=== PATIENT | female | born 1960 | race Caucasian/White ===

== ENCOUNTER 2016-06-09 11:31 | Emergency (ER) | payer BC, OTHER ==
[2016-06-09 13:55] VITALS: BP 143/78
--- NOTE | 2016-06-09 15:26 | RAD ---
INDICATION: Left wrist injury. TECHNIQUE: 3 views of the left wrist were obtained. FINDINGS: The bones are in normal alignment. No fracture is seen. Joint spaces appear maintained. IMPRESSION: No evidence for fracture, if the patient's symptoms persist recommend follow-up imaging.
--- NOTE | 2016-06-09 15:27 | RAD ---
INDICATION: Left scapular injury. TECHNIQUE: 2 views of the left scapula were obtained. FINDINGS: The bones are in normal alignment. No fracture is seen. Joint spaces appear maintained. IMPRESSION: NO EVIDENCE FOR FRACTURE.
--- NOTE | 2016-06-09 15:28 | RAD ---
INDICATION: Back pain. Injury COMPARISON: Lumbar spine November 14, 2007 TECHNIQUE: Routine PA, lateral, and oblique imaging was performed . FINDINGS: Bones: There are no acute bony findings. There are arthritic changes with endplate sclerosis and disc space narrowing about the L3-L4 and L4-L5 disc spaces. Findings are progressive. There is mild multilevel degenerative spurring as well. Alignment: S type scoliotic deformity. Disc spaces: The remaining disc spaces are well-maintained Soft tissues: There are no soft tissue abnormalities. IMPRESSION: MULTILEVEL DEGENERATIVE DISC DISEASE. SCOLIOSIS. NO ACUTE FINDINGS
--- NOTE | 2016-06-09 15:29 | RAD ---
INDICATION: Pelvic injury. COMPARISON: Comparison is made with a prior x-ray study from December 21, 2011. TECHNIQUE: An AP view of the pelvis was obtained. FINDINGS: The bones are in normal alignment. No fracture is seen. Joint spaces appear maintained. IMPRESSION: NO EVIDENCE FOR FRACTURE.
--- NOTE | 2016-06-09 15:50 | UC ---
Minor Trauma HPI - HPI Summary HPI Summary: 55 YO FEMALE FELL ON T[place]MI[place] AT WORK INJURING LEFT SIDE OCCURRED 3 DAYS AGO - History of Current Complaint Chief Complaint: UCGeneralIllness Stated Complaint: WRIST INJURY Time Seen by Provider: 06/09/16 14:42 Hx Obtained From: Patient Onset/Duration: Sudden Onset Onset Of Pain: Immediate Severity Initially: Moderate Severity Currently: Moderate Pain Intensity: 4 Pain Scale Used: 0-10 Numeric Mechanism Of Injury: Fall From A Standing Position Aggravating Factor(s): Ambulation, Movement Alleviating Factor(s): OTC Meds - MOTRIN Associated Signs And Symptoms: Positive: Ecchymosis, Swelling Related History: Positive: Occupational Injury - Risk Factors Penetrating Injury Risk Factors: Negative - Allergies/Home Medications Allergies/Adverse Reactions: Allergies Allergy/AdvReac Type Severity Reaction Status Date / Time No Known Allergies Allergy Verified 06/09/16 13:55 Home Medications: Home Medications Zolpidem TAB* [Ambien TAB*] 5 mg PO BEDTIME PRN 06/09/16 [History Confirmed ] PMH/Surg Hx/FS Hx/Imm Hx Previously Healthy: Yes Endocrine History Of: Denies: Diabetes, Thyroid Disease, Hyperthyroidism, Hypothyroidism Cardiovascular History Of: Denies: Cardiac Disorders, Hypertension Neurological History Of: Denies: TIA, Seizures Psychological History Of: Denies: Anxiety, Depression - Surgical History Surgical History: None - Family History Known Family History: Positive: Hypertension - Social History Alcohol Use: Rare Substance Use Type: None Smoking Status (MU): Never Smoked Tobacco Review of Systems Constitutional: Negative Skin: Bruising Eyes: Negative ENT: Negative Respiratory: Negative Cardiovascular: Negative Gastrointestinal: Negative Genitourinary: Negative Motor: Negative Neurovascular: Negative Musculoskeletal: Arthralgia, Myalgia Neurological: Negative Psychological: Negative All Other Systems Reviewed And Are Negative: Yes Physical Exam Triage Information Reviewed: Yes Appearance: Well-Appearing, No Pain Distress, Well-Nourished, Thin Vital Signs: Initial Vital Signs Temp 97.2 F 06/09/16 13:51 Pulse 64 06/09/16 13:51 BP 143/78 06/09/16 13:51 Pulse Ox 100 06/09/16 13:51 Vital Signs Reviewed: Yes Eyes: Positive: Conjunctiva Clear ENT: Positive: Hearing grossly normal. Negative: Nasal congestion, Nasal drainage, Trismus, Muffled/hoarse voice Neck: Positive: Supple, Nontender, No Lymphadenopathy Respiratory: Positive: Lungs clear, Normal breath sounds, No respiratory distress Cardiovascular: Positive: RRR, No Murmur Abdomen Description: Negative: CVA Tenderness (R), CVA Tenderness (L) Musculoskeletal: Positive: Other: - SEE IMAGE Neurological: Positive: Alert Psychological Exam: Normal Skin Exam: Other - SEE IMAGE Minor Trauma Course/Dx - Differential Dx/Diagnosis Provider Diagnoses: FALL. LUMBAR STRAIN/SPASM. LEFT SCAPULAR CONTUSION. LEFT WRIST SPRAIN(R/O OCCULT NAVICULAR FX). LEFT KNEE CONTUSION Discharge - Discharge Plan Condition: Good Disposition: HOME Patient Education Materials: Low Back Strain (ED), Contusion in Adults (ED), Wrist Sprain (ED), Degenerative Disc Disease (ED) Referrals: Manuel Rios MD [Medical Doctor] - 1 Week (for wrist injury) Additional Instructions: thumb spica splint I suggest you see an orthopedist about your wrist Sometime you can fracture a small bone in the wrist which can be missed on initial xr ice activity as tolerated I SUGGEST YOU SEE A CHIROPRACTOR SBOUT YOUR BACK AND HIP RECHECK IN ONE-TWO WEEKS IF NOT BETTER Images Hands: 1 - LEFT SNUFF BOIX TENDERNESS Front/Back of Body, Lg (Barren): 1 - TENDER 2 - TENDER 3 - SWOLLEN/ECCHYMOTIC
== END 2016-06-09 15:55 | disposition home or self-care (01) ==
LOC: UCEAST 11:31
DX: S63.502A Unspecified sprain of left wrist, initial encounter (principal); S39.012A Strain of muscle, fascia and tendon of lower back, initial encounter; S80.02XA Contusion of left knee, initial encounter; S40.012A Contusion of left shoulder, initial encounter; W19.XXXA Unspecified fall, initial encounter; Y93.A1 Activity, exercise machines primarily for cardiorespiratory conditioning; Y92.9 Unspecified place or not applicable; Y99.0 Civilian activity done for income or pay
CPT/HCPCS: 72110; 72170; 99212; G0463